=== PATIENT | male | born 1990 | race Hispanic/Latino ===

== ENCOUNTER 2017-05-10 22:49 | Emergency (ER) | payer OTHER ==
--- NOTE | 2017-05-10 23:05 | ED PDOC ---
HPI: General Adult Time Seen by Provider: 05/10/17 22:58 Chief Complaint (Nursing): Upper Extremity Problem/Injury History Per: Patient Additional Complaint(s): Pt. states he was playing touch football earlier today when he dove for the ball and landed directly on the shoulder. Pt. states he feels that shoulder may be dislocated as he had a dislocation to it in the past. Denies head injury, numbness, tingling, neck pain. Past Medical History Reviewed: Historical Data, Nursing Documentation, Vital Signs Vital Signs: Last Vital Signs Temp 98.4 F 05/10/17 22:51 Pulse 81 05/10/17 22:51 Resp 18 05/10/17 22:51 BP 153/81 H 05/10/17 22:51 Pulse Ox 98 05/11/17 00:39 - Family History Family History: States: No Known Family Hx - Allergies Allergies/Adverse Reactions: Allergies Allergy/AdvReac Type Severity Reaction Status Date / Time No Known Allergies Allergy Verified 05/10/17 22:55 Review of Systems ROS Statement: Except As Marked, All Systems Reviewed And Found Negative Musculoskeletal: Positive for: Shoulder Pain Physical Exam - Physical Exam Appears: Positive for: Well, Non-toxic, No Acute Distress Head Exam: Positive for: ATRAUMATIC, NORMAL INSPECTION, NORMOCEPHALIC Skin: Positive for: Normal Color, Warm. Negative for: Rash Pulses-Radial (L): 2+ Pulses-Radial (R): 2+ Extremity: Positive for: Other (R shoulder moderate tenderness, ? deformity with superficial abrasion; superficial abrasions noted to b/l lower legs without tenderness or swelling; R forearm with superficial abrasion without tenderness or swelling) - ECG O2 Sat by Pulse Oximetry: 98 Procedures - Time-Out Type of Procedure: Shoulder reduction Site of Procedure: R shoulder Correct Patient (with visual ID + MR# on ID Band): Yes Correct Procedure: Yes X-Ray Marked: Yes Physician Name: Edvin BLACKBURN/Tech: [place] - Joint Reduction Joint Reduction Site: shoulder (R) Conscious Sedation: Yes Reduction Attempts: 2 Pre-Procedure NV Exam: Yes Progress: 1st attempt done with Nitrous oxide and dilaudid 1mg IVP without success. During 2nd attempt pt. given 160mg Ketamine, 80mg propofol with success Shoulder immobilized with immobilizer. Disposition - Clinical Impression Clinical Impression: Shoulder dislocation - Patient ED Disposition Is Patient to be Admitted: Transfer of Care (Signed out to Dr. Pardo pending post reduction shoulder xray) - Disposition Disposition Time: 00:37 Condition: STABLE Forms: [facility] (Welsh)
[2017-05-11] MEDS ORDERED: Propofol 10 mg/ml Inj (20 ML) ONE (00:05)
[2017-05-11] MEDS ORDERED: Propofol 10 mg/ml Inj (20 ML) IV ONE ×2 (00:10→01:02)
[2017-05-11] MEDS ORDERED: Ketamine 50 mg/ml Inj (10 ml) ONE (00:25)
[2017-05-11] MEDS ORDERED: Bacitracin OINT 15GM TOP STA (00:39)
[2017-05-11] MEDS ORDERED: Ketamine 50 mg/ml Inj (10 ml) IV ONE (01:02)
--- NOTE | 2017-05-11 01:08 | ED PDOC ---
- ECG O2 Sat by Pulse Oximetry: 100 - Radiology X-Ray: Interpreted by Me, Viewed By Me X-Ray Interpretation: Other (good alignment, no fracture ) Medical Decision Making Medical Decision Making: PROCEDURE: PROCEDURAL SEDATION Performed by the emergency provider Start Time: 00:10 Consent: Informed consent, after discussion of the risks, benefits, and alternatives to the procedure, was obtained. Timeout: A timeout to verify the correct patient, procedure, and site was performed immediately prior to the procedure. Indication: Reduction of shoulder dislocation Patient History: History of adverse reactions involving sedation/anesthesia: No patient or family history of adverse reaction Patients H & P remains current: YES History and Physical and Current Medication list reviewed: YES Appropriate Candidate: Based on history and airway assessment, patient is an appropriate candidate for Deep Procedural Sedation: YES Preparation: Cardiac monitoring and continuous pulse oximetry. ET CO2 monitoring. IV access obtained. Suction immediately available at bedside. Patient Position: supine Anesthesia: Patient was given Ketamine 80 mg IV and Propofol 80 mg IV x2 with appropriate sedation. See MAR for details. Post-procedure: Patient tolerated the procedure well with no immediate complications. Patient recovered from sedation uneventfully and didnot require airway intervention. Post anesthesia the patient's vital signs including respiratory function, cardiovascular function, and temperature were stable. The patient's pain post anesthesia was assessed as none. End Time: 00:30 01:00: Transfer of staff from [facility], for pending XR and sedation recovery. Post procedural film reviewed - good alignment no dislocation. 0150 The patient was assessed for nausea post-sedation and the patient {denies it. At discharge patient back to baseline mental status and able to tolerate PO fluids in Emergency Department Scribe Attestation Documented by Marie Miller acting as a scribe for Dr. Pardo. Provider Attestation: All medical record entries made by the Scribe were at my direction and personally dictated by me. I have reviewed the chart and agree that the record accurately reflects my personal performance of the history, physical exam, medical decision making, and the department course for this patient. I have also personally directed, reviewed, and agree with the discharge instructions and disposition. Disposition Doctor Will See Patient In The: Office Counseled Patient/Family Regarding: Studies Performed, Diagnosis, Need For Followup - Clinical Impression Clinical Impression: Shoulder dislocation - POA Present On Arrival: None - Disposition Referrals: Ginette Dukes MD [Staff Provider] - Disposition: Routine/Home Disposition Time: 01:50 Condition: GOOD Additional Instructions: Take advil for for pain. Carry immobilizer at all times. Follow up with your orthopedist in 1 week. Instructions: Shoulder Dislocation (ED), Deep Sedation (ED) Forms: [facility] ED School/Work Excuse
[2017-05-11 01:40] VITALS: RESP 17
[2017-05-11 01:55] VITALS: BP 141/80; PULSE 82; TEMP 98.3
[2017-05-11 02:29] VITALS: O2SAT 100
--- NOTE | 2017-05-11 09:28 | RAD ---
PROCEDURE: Radiographs of the Right Shoulder HISTORY: trauma COMPARISON: No prior. FINDINGS: BONES: No fractures identified. An orthopedic anchor is identified the proximal metaphysis of the right humerus. JOINTS: Normal. Glenohumeral and acromioclavicular joints preserved. No osteoarthritis. SOFT TISSUES: Normal. OTHER FINDINGS: None. IMPRESSION: An orthopedic anchor seen the proximal right humerus. No acute fracture identified or dislocation.
--- NOTE | 2017-05-11 09:34 | RAD ---
PROCEDURE: RIGHT SHOULDER SINGLE VIEW HISTORY: Y VIEW PLEASE COMPARISON: Right shoulder x-ray 05/10/2017. TECHNIQUE: A tangential view of the right shoulder is not performed. FINDINGS: No dislocation or gross fractures appreciable. IMPRESSION: No fracture or gross dislocation appreciated.
== END 2017-05-11 01:53 | disposition home or self-care (01) ==
LOC: H.ER 22:49
DX: S43.004A Unspecified dislocation of right shoulder joint, initial encounter (principal); W18.30XA Fall on same level, unspecified, initial encounter; Y93.61 Activity, american tackle football
CPT/HCPCS: 23650; 73020; 73030; 90471; 90715; 94770; 96374; 96375; 99284; J1170; J2405; J2704